=== PATIENT | female | born 1960 | race Caucasian/White ===

== ENCOUNTER 2023-08-09 10:48 | Emergency (ER) | payer OTHER, SELFPAY ==
[2023-08-09 10:55] VITALS: BP 119/73; PULSE 108; RESP 20; TEMP 36.9; O2SAT 95; BMI 25.5
--- NOTE | 2023-08-09 11:18 | ED_ITS ---
HPI - Female Genitourinary General Chief complaint: Urogenital-Female Stated complaint: UTI SYMPTOMS Time Seen by Provider: 08/09/23 10:59 Source: patient Mode of arrival: walk-in Limitations: no limitations History of Present Illness HPI Narrative: 63-year-old female presents for dysuria. She's been urinating frequently, small amounts. She saw some blood in it as well. No back pain fever vomiting. She states where she is living has bedbugs and she's had some bites. Related Data Previous Rx's Medication Instructions Recorded cephalexin 500 mg capsule 500 mg PO TID 7 days #21 caps 08/09/23 Allergies Allergy/AdvReac Type Severity Reaction Status Date / Time ketorolac [From Toradol] Allergy Severe Verified 08/09/23 10:55 tramadol Allergy Severe Verified 08/09/23 10:55 morphine AdvReac Severe Hallucinati Verified 08/09/23 10:55 ng Review of Systems 2 ROS Narrative A ten point review of systems is negative except as noted above. PFSH PFSH Social History Smoking status: Heavy tobacco smoker Exam Narrative Exam Narrative: Nurses note and vital signs reviewed and patient is not hypoxic. General: The patient appears well and in no apparent distress. Patient is resting comfortably on cart. Skin: Warm, dry, no pallor noted. on both forearms are small erythematous areas consistent with insect bite. Head: Normocephalic, atraumatic Eye: Normal conjunctiva, no drainage Ears, Nose, Mouth, and Throat: oral mucosa is moist. Nares patent. Cardiovascular: Regular Rate and Rhythm Respiratory: Patient is in no distress, no accessory muscle use, lungs are pedrito ar to auscultation, no wheezing, rales or rhonchi Back: non-tender GI: soft and nontender Musculoskeletal: The patient has no evidence of calf tenderness, no pitting edema, symmetrical pulses noted bilaterally Neurological: A&O, normal speech Psychiatric: Cooperative Constitutional Vital Signs, click to edit/add: Last Vital Signs Temp 98.4 F 08/09/23 10:55 Pulse 108 H 08/09/23 10:55 Resp 20 08/09/23 10:55 BP 119/73 08/09/23 10:55 Pulse Ox 95 08/09/23 10:55 O2 Del Method Room Air 08/09/23 10:55 Course Vital Signs Vital signs: Vital Signs Temperature 98.4 F 08/09/23 10:55 Pulse Rate 108 H 08/09/23 10:55 Respiratory Rate 20 08/09/23 10:55 Blood Pressure 119/73 08/09/23 10:55 Pulse Oximetry 95 08/09/23 10:55 Oxygen Delivery Method Room Air 08/09/23 10:55 Temperature 98.4 F 08/09/23 10:55 Pulse Rate 108 H 08/09/23 10:55 Respiratory Rate 20 08/09/23 10:55 Blood Pressure 119/73 08/09/23 10:55 Pulse Oximetry 95 08/09/23 10:55 Oxygen Delivery Method Room Air 08/09/23 10:55 MDM - Female Genitourinary MDM Narrative Medical decision making narrative: urinalysis indicates urinary tract infection and she's prescribed Keflex. Treatment diagnosis and follow-up were discussed with the patient. Differential Diagnosis Differential diagnosis: Likely urinary tract infection and cystitis Lab Data Attestation: I reviewed the patient's lab results. Labs: Lab Results 08/09/23 Range/Units 11:03 Urine Color Yellow (YELLOW) Urine Clarity Clear (CLEAR) Urine pH 5.5 (5.0-9.0) Ur Specific [place] >=1.030 A (1.005-1.025) Urine Protein 100 A (NEG/TRACE) mg/dL Urine Glucose (UA) Negative (NEGATIVE) mg/dL Urine Ketones Trace A (NEGATIVE) mg/dL Urine Occult Blood Trace-i (NEGATIVE) Urine Nitrite Negative (NEGATIVE) Urine Bilirubin Small A (NEGATIVE) Urine Urobilinogen 1.0 (0.2-1.0) EU/dL Ur Leukocyte Esterase Trace A (NEGATIVE) Urine RBC 5-10 A (0-2) #/HPF Urine WBC 10-20 A (NONE SEEN) #/HPF Ur Squamous Epith Cells Few A (NONE/RARE) #/LPF Urine Bacteria Small A (NONE SEEN) #/HPF Urine Mucus None seen (NONE SEEN) Discharge Plan Discharge Chief Complaint: Urogenital-Female Clinical Impression: Urinary tract infection Patient Disposition: Home, Self-Care Time of Disposition Decision: 11:47 Condition: Good Mode of Transportation: Private Vehicle Prescriptions / Home Meds: New cephalexin 500 mg capsule 500 mg PO TID 7 Days Qty: 21 0RF Instructions: Urinary Tract Infection in Women (ED) Stand Alone Forms: Portal Instructions Referrals: SPENSER BECERRA [Primary Care Provider] - 1 week
[2023-08-09 11:30] LABS: Bilirubin Urine SMALL (NEGATIVE); Blood Urine TRACE-I (NEGATIVE); Clarity Urine CLEAR (CLEAR); Color Urine YELLOW (YELLOW); Glucose Urine UA NEGATIVE (NEGATIVE); Ketones Urine TRACE mg/dL (NEGATIVE); Leukocyte Esterase Urine TRACE (NEGATIVE); Nitrite Urine NEGATIVE (NEGATIVE); Protein Urine 100 mg/dL (NEG/TRACE); Specific Gravity Urine >=1.030 (1.005-1.025); pH Urine 5.5 (5.0-9.0)
[2023-08-09 11:39] LABS: Bacteria Urine SMALL #/HPF (NONE SEEN); Mucus Urine NONE SEEN (NONE SEEN); Squamous Epithelial Cell Urine FEW #/LPF (NONE/RARE)
== END 2023-08-09 11:51 | disposition home or self-care (01) ==
PROVIDERS: Emergency Provider Emergency Medicine
DX: N39.0 Urinary tract infection, site not specified (principal); F17.210 Nicotine dependence, cigarettes, uncomplicated
CPT/HCPCS: 81001; 99283

== ENCOUNTER 2023-08-16 12:27 | Emergency (ER) | payer OTHER, SELFPAY ==
[2023-08-16 12:31] VITALS: BP 149/69; PULSE 92; RESP 16; TEMP 36.6; O2SAT 95; BMI 25.2
--- NOTE | 2023-08-16 12:35 | PC.NURSE ---
Patient has red raised areas to bilateral hands and arms, patient reports areas are from bed bugs . Areas reddened with no drainage noted.
--- NOTE | 2023-08-16 13:18 | ED.GENADUL1 ---
HPI - General Adult General Chief complaint: Skin/Abscess/Foreign Body Stated complaint: BUG BITES Time Seen by Provider: 08/16/23 12:32 Source: patient Mode of arrival: walk-in History of Present Illness HPI narrative: patient convinced that her sister's house has bed bugs and she complains of bites all over her arms. She said that she moved to the area from [place] about 2 weeks ago and the night she moved into her sister's house the bites began. She said that they are itchy. She has been scratching the areas and has developed scabs. No purulent discharge from the lesions. No systemic complaints such as fever or chills. Related Data Previous Rx's Medication Instructions Recorded cephalexin 500 mg capsule 500 mg PO TID 7 days #21 caps 08/09/23 cephalexin 500 mg capsule 500 mg PO QID 7 days #28 caps 08/16/23 hydroxyzine HCl 25 mg tablet 25 mg PO Q8H PRN itching #20 tabs 08/16/23 Allergies Allergy/AdvReac Type Severity Reaction Status Date / Time ketorolac [From Toradol] Allergy Severe Verified 08/09/23 10:55 tramadol Allergy Severe Verified 08/09/23 10:55 morphine AdvReac Severe Hallucinati Verified 08/09/23 10:55 ng PFSH PFSH Social History Smoking status: Heavy tobacco smoker Exam Narrative Exam Narrative: Nurses notes and vital signs reviewed and patient is not hypoxic. afebrile General: Well-appearing and in no apparent distress. Skin: Warm, dry, no pallor noted. numerous scabbed lesions on both upper extremities, the neck and the chin. Several have rings of erythema. No discharge from any of the lesions. No abscesses, vesicles, bullae or skin sloughing. No intertriginous lesions or streaks suggesting scabies. No tenting resembling mosquito bites. Cardiovascular: Normal peripheral perfusion. Respiratory: No accessory muscle use or respiratory distress. Back: No midline thoracic or lumbar vertebral tenderness. Musculoskeletal: normal ROM, no upper or lower extremity edema/swelling Neurological: A&O x4. No cranial nerve dysfunction observed. No truncal ataxia. Moves all extremities. Sensation intact. Psychiatric: Cooperative and interactive. Normal mood and affect. Constitutional Vital Signs, click to edit/add: Last Vital Signs Temp 97.8 F 08/16/23 12:31 Pulse 92 H 08/16/23 12:31 Resp 16 08/16/23 12:31 BP 149/69 H 08/16/23 12:31 Pulse Ox 95 08/16/23 12:31 O2 Del Method Room Air 08/16/23 12:31 Course Vital Signs Vital signs: Vital Signs Temperature 97.8 F 08/16/23 12:31 Pulse Rate 92 H 08/16/23 12:31 Respiratory Rate 16 08/16/23 12:31 Blood Pressure 149/69 H 08/16/23 12:31 Pulse Oximetry 95 08/16/23 12:31 Oxygen Delivery Method Room Air 08/16/23 12:31 Temperature 97.8 F 08/16/23 12:31 Pulse Rate 92 H 08/16/23 12:31 Respiratory Rate 16 08/16/23 12:31 Blood Pressure 149/69 H 08/16/23 12:31 Pulse Oximetry 95 08/16/23 12:31 Oxygen Delivery Method Room Air 08/16/23 12:31 Medical Decision Making MDM Narrative Medical decision making narrative: Patient given hydroxyzine for the itching and started on keflex to prevent any secondary infection and treat the areas that look like they may be developing cellulitis. Discharge Plan Discharge Chief Complaint: Skin/Abscess/Foreign Body Clinical Impression: Insect bites Patient Disposition: Home, Self-Care Time of Disposition Decision: 13:17 Prescriptions / Home Meds: New hydroxyzine HCl 25 mg tablet 25 mg PO Q8H PRN (Reason: itching) Qty: 20 0RF cephalexin 500 mg capsule 500 mg PO QID 7 Days Qty: 28 0RF No Action cephalexin 500 mg capsule 500 mg PO TID 7 Days Qty: 21 0RF Instructions: Bed Bugs (ED) Stand Alone Forms: Portal Instructions Referrals: Physician,Non-Staff, MD [Primary Care Provider] - 1 week Discharge Date/Time: 08/16/23 13:33
== END 2023-08-16 13:33 | disposition home or self-care (01) ==
PROVIDERS: Emergency Provider Emergency Medicine
DX: S40.862A Insect bite (nonvenomous) of left upper arm, initial encounter (principal); S40.861A Insect bite (nonvenomous) of right upper arm, initial encounter; S10.96XA Insect bite of unspecified part of neck, initial encounter; S00.86XA Insect bite (nonvenomous) of other part of head, initial encounter; W57.XXXA Bitten or stung by nonvenomous insect and other nonvenomous arthropods, initial encounter; F17.210 Nicotine dependence, cigarettes, uncomplicated
CPT/HCPCS: 99283